=== PATIENT | female | born 1990 | race Caucasian/White ===

== ENCOUNTER 2017-04-05 20:50 | Emergency (ER) | payer BC, OTHER ==
[2017-04-05] MEDS ORDERED: NS 0.9% 1000 ML* 2,000 ML IV ONE (21:42)
[2017-04-05 21:48] LABS: Hematocrit 42 % (35-47); Mean Corpuscular HGB Conc 33 g/dl (31-36); Mean Corpuscular Hemoglobin 30 pg (27-31); Mean Corpuscular Volume 88 fL (80-97); Mean Platelet Volume 7 um3 (7.4-10.4); Red Blood Count 4.75 10^6/ul (4.0-5.4); Red Cell Distribution Width 13 % (10.5-15); White Blood Count 12.6 10^3/ul (3.5-10.8)
[2017-04-05 21:53] LABS: Urine Bacteria Absent (Absent); Urine Bilirubin Negative (Negative); Urine Glucose Negative (Negative); Urine Nitrite Negative (Negative)
[2017-04-05 21:59] LABS: ALT 8 U/L (7-52); AST 14 U/L (13-39); Albumin 4.5 g/dL (3.2-5.2); Alkaline Phosphatase 53 U/L (34-104); Anion Gap 8 mmol/L (2-11); BUN/Creatinine Ratio 12.8 (8-20); Blood Urea Nitrogen 10 mg/dL (6-24); CO2 Carbon Dioxide 22 mmol/L (22-32); Calcium 9.6 mg/dL (8.6-10.3); Chloride 103 mmol/L (101-111); Creatine Kinase 62 U/L (10-223); EGFR African American 113.9 (>60); EGFR Non-African American 88.6 (>60); Globulin 3.3 g/dL (2-4); Glucose 101 mg/dL (70-100); Potassium 3.5 mmol/L (3.5-5.0); Sodium 133 mmol/L (133-145); Total Protein 7.8 g/dL (6.4-8.9)
[2017-04-05 22:03] LABS: Benzodiazepine Urine Screen None Detected (None Detect)
[2017-04-05 22:13] LABS: Acetaminophen < 15 mcg/mL; Alcohol < 10 mg/dL (<10); Salicylate < 2.50 mg/dL (<30)
[2017-04-05 22:23] LABS: TSH (Thyroid Stimulating Horm) 2.11 mcIU/mL (0.34-5.60)
--- NOTE | 2017-04-06 06:42 | ED ---
Joseph Barnett Aidan, scribed for Savage Rios on 04/06/17 at 0634 . Progress - Progress Note Progress Note: Sign out to Dr. Mejia. This is a 27 y/o female who came with depression and drug OD. Poison control was called and they recommended observation for 6 hours. MHE was conducted. She will be re-evaluated. - Consult/PCP Time Called: 03:10 Course/Dx - Diagnoses Provider Diagnoses: Depression, Drug overdose The documentation as recorded by the Joseph kaur Aidan accurately reflects the service I personally performed and the decisions made by Gabriel shepherd Emmanuel.
--- NOTE | 2017-04-06 06:44 | ED ---
Mary Barnett Anna, scribed for Savage Rios on 04/05/17 at 2115 . Substance Abuse/Use - HPI Summary HPI Summary: Patient is a 27 y/o female coming to [facility] following the sudden onset of an intentional overdose of ibuprofen that occurred at 1930 this evening. The patient took two handfuls of 200 mg Advil to go to bed. She denies a prior history of depression, bipolar disorder, or suicidal attempt. She denies current pain or fever. - History Of Current Complaint Chief Complaint: EDMentalHealth Stated Complaint: OVERDOSE-IBUPROFEN Time Seen by Provider: 04/05/17 21:09 Hx Obtained From: Patient Onset/Duration of Drug/ETOH Abuse: Hours Ingestion History: Type/Name Of Drug - ibuprofen, Amount Ingested - two handfuls of 200 mg Advil tablets Overdose Characteristics: Oral Severity Initially: Moderate Severity Currently: Moderate Character: Other - Allergies/Home Medications Allergies/Adverse Reactions: Allergies Allergy/AdvReac Type Severity Reaction Status Date / Time Monosodium Glutamate Allergy Anaphylatic Verified 04/05/17 21:17 Shock PMH/Surg Hx/FS Hx/Imm Hx Endocrine/Hematology History: Denies: Hx Sickle Cell Disease Cardiovascular History: Denies: Hx Congenital Heart Disease Respiratory History: Reports: Hx Asthma Psychiatric History: Denies: Hx Depression, Hx Suicide Attempt Infectious Disease History: Denies: Traveled Outside the [place] in Last 30 Days - Family History Known Family History: Positive: Cardiac Disease, Hypertension, Diabetes, Other - Hx Colon CA - Social History Lives: With Family Alcohol Use: None Substance Use Type: Reports: None Hx Tobacco Use: No Review of Systems Constitutional: Other - overdose Negative: Fever Negative: Arthralgia, Myalgia Negative: Depressed All Other Systems Reviewed And Are Negative: Yes Physical Exam Triage Information Reviewed: Yes Vital Signs On Initial Exam: Initial Vitals Temp Pulse Resp BP Pulse Ox 99.2 F 95 18 144/81 98 04/05/17 20:54 04/05/17 20:54 04/05/17 20:54 04/05/17 20:54 04/05/17 20:54 Vital Signs Reviewed: Yes Appearance: Positive: Well-Appearing, No Pain Distress Skin: Positive: Warm, Skin Color Reflects Adequate Perfusion Head/Face: Positive: Normal Head/Face Inspection Eyes: Positive: EOMI, CARMELO ENT: Positive: Normal ENT inspection Neck: Positive: Supple, Nontender Respiratory/Lung Sounds: Positive: Clear to Auscultation, Breath Sounds Present Cardiovascular: Positive: RRR, Pulses are Symmetrical in both Upper and Lower Extremities Abdomen Description: Positive: Nontender, Soft Bowel Sounds: Positive: Present Musculoskeletal: Positive: Normal, Strength/ROM Intact Neurological: Positive: Normal, Sensory/Motor Intact, Alert, Oriented to Person Place, Time Psychiatric: Positive: Depressed - Pt tearful upon exam Diagnostics - Vital Signs Vital Signs Temp Pulse Resp BP Pulse Ox 04/05/17 20:54 99.2 F 95 18 144/81 98 - Laboratory Result Diagrams: 04/05/17 21:30 04/05/17 21:30 Lab Statement: Any lab studies that have been ordered have been reviewed, and results considered in the medical decision making process. - EKG 2122 Cardiac Rate: NL - 86 bpm EKG Rhythm: Sinus Rhythm ST Segment: Normal Ectopy: None EKG Interpretation: No acute changes Course/Dx - Course Course Of Treatment: mhe pending am - Diagnoses Provider Diagnoses: Depression, Drug overdose Discharge - Discharge Plan Condition: Stable Disposition: OTHER Discharge Disposition Comment: endosed to [facility] The documentation as recorded by the Mary kaur Anna accurately reflects the service I personally performed and the decisions made by Gabriel shepherd Emmanuel.
[2017-04-06 07:23] VITALS: BP 120/69
--- NOTE | 2017-04-06 16:05 | ED ---
Abraham Barnett Soohyun, scribed for Rajan Mejia MD on 04/06/17 at 1357 . Progress - Progress Note Progress Note: Pt was signed out from Dr. Rios at shift change. Pt is safe for discharge after mental health evaluation with diagnosis of depression. - Consult/PCP Time Called: 03:10 Course/Dx - Diagnoses Provider Diagnoses: Depression, Drug overdose The documentation as recorded by the sedaibAbraham marie Soohyun accurately reflects the service I personally performed and the decisions made by , Rajan Mejia MD.
== END 2017-04-06 14:05 ==
LOC: ED 20:50
DX: T39.312A Poisoning by propionic acid derivatives, intentional self-harm, initial encounter (principal); F32.9 Major depressive disorder, single episode, unspecified; Y92.9 Unspecified place or not applicable
CPT/HCPCS: 36415; 80053; 80307; 80320; 80329; 81003; 81015; 82550; 84443; 84702; 85025; 93005; 99282; G0480

== ENCOUNTER → 2017-09-04 09:53 | Emergency (ER) | payer BC ==
[~2017-09-04 09:53] MED LIST: Ibuprofen TAB* 600 MG PO ONE
[2017-09-04 10:00] VITALS: BP 119/79
--- NOTE | 2017-09-04 10:50 | RAD ---
HISTORY: Left ankle trauma COMPARISONS: None VIEWS: 4, Frontal, lateral, and oblique views of the left ankle FINDINGS: BONE DENSITY: Normal. BONES: There is no displaced fracture. JOINTS: There is no arthropathy. ALIGNMENT: There is no dislocation. SOFT TISSUES: Unremarkable. OTHER FINDINGS: None. IMPRESSION: NO ACUTE OSSEOUS INJURY. IF SYMPTOMS PERSIST, RECOMMEND REPEAT IMAGING.
--- NOTE | 2017-09-04 14:08 | ED ---
Jin Barnett Benjamin, scribed for Junito Mendoza MD on 09/04/17 at 1028 . Lower Extremity - HPI Summary HPI Summary: 27yo female who tripped and fell down the stairs this morning and hurt her left ankle. Area is swollen and hurts to move. No significant PMHx. - History of Current Complaint Chief Complaint: EDExtremityLower Stated Complaint: FALL/LT ANKLE PAIN Time Seen by Provider: 09/04/17 10:20 Hx Obtained From: Patient Mechanism Of Injury: Twisted Onset of Pain: Post Accident Onset/Duration: Still Present Severity Initially: Mild Severity Currently: Mild Pain Intensity: 4 Pain Scale Used: 0-10 Numeric Timing: Constant Location: Is Discrete @ - left ankle Character Of Pain: Throbbing Associated Signs And Symptoms: Positive: Swelling Aggravating Factor(s): Standing, Ambulation, Movement, Weight Bearing Alleviating Factor(s): Ice Able to Bear Weight: No - Allergies/Home Medications Allergies/Adverse Reactions: Allergies Allergy/AdvReac Type Severity Reaction Status Date / Time Monosodium Glutamate Allergy Anaphylatic Verified 04/05/17 21:17 Shock PMH/Surg Hx/FS Hx/Imm Hx Endocrine/Hematology History: Denies: Hx Sickle Cell Disease Cardiovascular History: Denies: Hx Congenital Heart Disease Respiratory History: Reports: Hx Asthma Psychiatric History: Denies: Hx Eating Disorder, Hx Depression, Hx Suicide Attempt - Immunization History Date of Tetanus Vaccine: unk Date of Influenza Vaccine: none Infectious Disease History: No Infectious Disease History: Denies: Traveled Outside the [place] in Last 30 Days - Family History Known Family History: Positive: Cardiac Disease, Hypertension, Diabetes, Other - Hx Colon CA - Social History Occupation: Works From/At Home Lives: With Family Alcohol Use: None Substance Use Type: Reports: None Hx Tobacco Use: No Smoking Status (MU): Light Every Day Tobacco Smoker Review of Systems Constitutional: Negative Eyes: Negative ENT: Negative Cardiovascular: Negative Respiratory: Negative Gastrointestinal: Negative Genitourinary: Negative Positive: Arthralgia - left ankle, Edema - left ankle Skin: Negative Neurological: Negative All Other Systems Reviewed And Are Negative: Yes Physical Exam Triage Information Reviewed: Yes Vital Signs On Initial Exam: Initial Vitals Temp Pulse Resp BP Pulse Ox 97.9 F 92 20 119/79 98 09/04/17 09:58 09/04/17 09:58 09/04/17 09:58 09/04/17 09:58 09/04/17 09:58 Vital Signs Reviewed: Yes Appearance: Positive: Well-Appearing, No Pain Distress, Well-Nourished Skin: Positive: Warm, Skin Color Reflects Adequate Perfusion, Dry Head/Face: Positive: Normal Head/Face Inspection Eyes: Positive: EOMI, CARMELO ENT: Positive: Normal ENT inspection, Hearing grossly normal Neck: Positive: Supple, Nontender Respiratory/Lung Sounds: Positive: Clear to Auscultation, Breath Sounds Present Cardiovascular: Positive: RRR, Pulses are Symmetrical in both Upper and Lower Extremities Abdomen Description: Positive: Nontender, Soft Bowel Sounds: Positive: Present Musculoskeletal: Positive: Limited @ - left ankle, due to pain, Pain @ - left ankle, Edema Left - Swelling in left lateral malleolus. No ligament laxity. Neurological: Positive: Sensory/Motor Intact, Alert, Oriented to Person Place, Time Psychiatric: Positive: Affect/Mood Appropriate Diagnostics - Vital Signs Vital Signs Temp Pulse Resp BP Pulse Ox 09/04/17 09:58 97.9 F 92 20 119/79 98 - Laboratory Lab Statement: Any lab studies that have been ordered have been reviewed, and results considered in the medical decision making process. - Radiology Left Ankle XR Xray Interpretation: No Acute Changes - NO ACUTE OSSEOUS INJURY. IF SYMPTOMS PERSIST, RECOMMEND REPEAT IMAGING. Radiology Interpretation Completed By: Radiologist - ED physician has reviewed this radiology report and agrees. Re-Evaluation - Re-Evaluation First Eval Re-Evaluation Time: 10:59 Comment: Reviewed pts imaging result with the pt. Lower Extremity Course/Dx - Course Course Of Treatment: Ms. Ibrahim twisted her left ankle (inversion of the foot) andcame in with obvious swelling. There was no ligamentous laxity and x-ray showed no fracture. She was given a gel cast and crutches and D/C'd for F/U. - Diagnoses Provider Diagnoses: Left ankle sprain Discharge - Discharge Plan Condition: Stable Disposition: HOME Patient Education Materials: Cast Care (ED), Crutch Instructions (ED), Ankle Sprain (ED) Referrals: Anjum Zendejas MD [Medical Doctor] - The documentation as recorded by the Jin kaur Benjamin accurately reflects the service I personally performed and the decisions made by me, Junito Mendoza MD.
== END | disposition home or self-care (01) ==
LOC: ED 09:53
DX: S93.402A Sprain of unspecified ligament of left ankle, initial encounter (principal); Z72.0 Tobacco use; W18.09XA Striking against other object with subsequent fall, initial encounter; Y92.9 Unspecified place or not applicable; W10.9XXA Fall (on) (from) unspecified stairs and steps, initial encounter
CPT/HCPCS: 99282; A9270-GY

== ENCOUNTER 2019-05-04 16:55 | Emergency (ER) | payer BC, OTHER ==
[2019-05-04 17:01] VITALS: BP 116/73
--- NOTE | 2019-05-04 17:39 | UC ---
Cardiac HPI - HPI Summary HPI Summary: 29-year-old woman comes in with a chief complaint of left-sided splinting chest pain. Patient reports she woke up at 5 AM this morning when she sat up she had sudden onset of left sided splinting chest pain. She did have some sweating. She's had some night sweats recently. No cough or chest congestion. No fevers measured. No upper respiratory tract infection symptoms. Patient's had tubal ligation and is not on any estrogens. She has no history of prior DVT or pulmonary embolus. No recent travels or surgery. No calf or leg pain or swelling. Pain is worse this morning was a 9 out of 10 at this time it's a 3 out of 10. Taking deep breath makes the pain worse. Patient has had GERD symptoms several times this week. Moving her arms and neck does not make the pain worse. She is unable to make the pain worse by pushing on her chest. No rash. - History of Current Complaint Chief Complaint: UCChestPain Stated Complaint: CHEST PAIN, LEFT HAND NUMBING Time Seen by Provider: 05/04/19 17:00 Hx Last Menstrual Period: 04/28/19 Pain Intensity: 8 - Allergy/Home Medications Allergies/Adverse Reactions: Allergies Allergy/AdvReac Type Severity Reaction Status Date / Time monosodium glutamate Allergy Anaphylatic Verified 05/04/19 17:02 Shock Home Medications: Home Medications Ibuprofen TAB* [Motrin TAB* 400 MG] 400 mg PO Q6H PRN 05/04/19 [History Confirmed 05/04/19] PMH/Surg Hx/FS Hx/Imm Hx Previously Healthy: Yes - Surgical History Surgical History: None - Family History Known Family History: Positive: Cardiac Disease, Hypertension, Diabetes, Other - Hx Colon CA - Social History Alcohol Use: None Substance Use Type: None Smoking Status (MU): Light Every Day Tobacco Smoker Type: [employer] Household Exposure Type: Cigarettes Review of Systems All Other Systems Reviewed And Are Negative: Yes Constitutional: Positive: Other - SEE HPI Skin: Positive: Negative Eyes: Positive: Negative ENT: Positive: Negative Respiratory: Positive: Negative Cardiovascular: Positive: Chest Pain Gastrointestinal: Positive: Negative Motor: Positive: Negative Neurovascular: Positive: Negative Musculoskeletal: Positive: Negative Neurological: Positive: Negative Psychological: Positive: Negative Is Patient Immunocompromised?: No Physical Exam Triage Information Reviewed: Yes Appearance: Well-Appearing, No Pain Distress, Well-Nourished Vital Signs: Initial Vital Signs Temp 99.3 F 05/04/19 16:58 Pulse 79 05/04/19 16:58 Resp 18 05/04/19 16:58 BP 116/73 05/04/19 16:58 Pulse Ox 100 05/04/19 16:58 Vital Signs Reviewed: Yes Eye Exam: Normal Eyes: Positive: Conjunctiva Clear Neck: Positive: Supple, Nontender Respiratory: Positive: Chest non-tender, Lungs clear, Normal breath sounds, No respiratory distress Cardiovascular: Positive: RRR Abdomen Description: Positive: Nontender, Soft Bowel Sounds: Positive: Present Musculoskeletal Exam: Normal Musculoskeletal: Positive: Strength Intact, ROM Intact, No Edema - NO CALF TENDERNESS Neurological: Positive: Alert Psychological: Positive: Age Appropriate Behavior Skin Exam: Normal Diagnostics - EKG Cardiac Rate: NL - AT 1703 Cardiac Rhythm: Sinus: Normal - 85 BPM Ectopy: None ST Segment: Normal - Assessment/Plan Course Of Treatment: Patient Name: DRE PERSON Medical Record#: [id number] Ordering Physician: Saeed Dodson MD Acct.#: [id number] : 1990 Age: 29 Sex: F Location: [facility] [place] Exam Date: 05/04/191732 ADM Status: PRE ER Order Information: CHEST PA LAT 2 VWS Accession Number: [id number] CPT: 84767 INDICATION: LEFT side splinting chest pain with deep inspiration. History of tobacco use. COMPARISON: February 01, 2016 TECHNIQUE: Dual energy PA and routine lateral views of the chest were obtained. REPORT: Clear lungs and pleural spaces. Negative for pneumothorax. The heart, pulmonary vasculature, and mediastinal contours are unremarkable. Unremarkable osseous structures and soft tissue contours. IMPRESSION: #. No evidence for acute intrathoracic disease. <Electronically signed by Jeffery Graves MD in OV> 05/04/19 2172 I discussed the x-rays with the patient. Also discussed the EKG. On the EKG a due to see any ischemic changes. Patient's chest wall is nontender to palpation. Pain was worse when she first woke up at has improved over the course of the day. She has been suffering from GERD. The potential cause is acid aspiration during the night. I recommended taking omeprazole 20 mg twice a day. Patient reports that she has omeprazole at home which she will take. Also recommended not sleeping flat been sleeping propped up. If significant ibuprofen she should take it with food. We discussed the other potential causes of splinting chest pain to include pulmonary embolus, pericarditis and other causes. Patient was low risk based on PERC score for pulmonary embolus. A discussed going to the emergency department when the patient first got here for evaluation to include time blood work. She declined going to the emergency department. Did let her know that if she did not improve her got worse she needed to go to the emergency department for further evaluation and treatment. - Clinical Impression Provider Diagnosis: Chest pain, GERD (gastroesophageal reflux disease) Discharge - Sign-Out/Discharge Documenting (check all that apply): Patient Departure All imaging exams completed and their final reports reviewed: Yes - Discharge Plan Condition: Stable Disposition: HOME Patient Education Materials: Chest Pain (ED), Gastroesophageal Reflux Disease ( ED) Referrals: Candie Carrillo MD [Medical Doctor] - Additional Instructions: FOLLOW UP WITH YOUR DOCTOR. TAKE OMEPRAZOLE 20MG TWICE A DAY. IF YOU TAKE IBUPROFEN, TAKE IT WITH FOOD. GO TO THE EMERGENCY DEPARTMENT IF YOUR CONDITION WORSENS; CHEST OR ABDOMINAL PAIN, SHORTNESS OF BREATH, YOU FEEL ILL OR ANY QUESTIONS OR CONCERNS. - Billing Disposition and Condition Condition: STABLE Disposition: Home
== END 2019-05-04 18:42 | disposition home or self-care (01) ==
LOC: UCCORT 16:55
DX: K21.9 Gastro-esophageal reflux disease without esophagitis (principal); R07.9 Chest pain, unspecified; F17.210 Nicotine dependence, cigarettes, uncomplicated; Z91.02 Food additives allergy status
CPT/HCPCS: 71046; 93005; 99211; G0463

== ENCOUNTER 2019-12-22 19:52 | Emergency (ER) | payer OTHER ==
[2019-12-22 20:21] VITALS: BP 120/78
[2019-12-22] MEDS ORDERED: Ondansetron ODT TAB* 4 MG PO ONE (20:23)
[2019-12-22] MEDS ORDERED: Albuterol 2.5 MG/3 ML NEB.SOL* (0.083%) INH ONE (20:30)
[2019-12-22 20:32] LABS: Influenza A Molecular POSITIVE (Negative)
--- NOTE | 2019-12-22 20:45 | UC ---
FLU HPI - HPI Summary HPI Summary: "I think I have the flu" w/ nausea x48 hours. - History of Current Complaint Chief Complaint: UCRespiratory Stated Complaint: FLU LIKE SYMPTOMS Time Seen by Provider: 12/22/19 20:19 Hx Obtained From: Patient Hx Last Menstrual Period: 04/28/19 ?: No Onset/Duration: Sudden Onset, Lasting Days Severity Currently: Severe Severity Initially: Severe Pain Intensity: 8 Associated Signs & Symptoms: Positive: Fever, Myalgia, Cough, Headache, Vomiting - Allergy/Home Medications Allergies/Adverse Reactions: Allergies Allergy/AdvReac Type Severity Reaction Status Date / Time monosodium glutamate Allergy Anaphylatic Verified 12/22/19 20:18 Shock Home Medications: Home Medications Citalopram TAB* [CeleXA TAB*] 10 mg PO DAILY 12/22/19 [History Confirmed ] PMH/Surg Hx/FS Hx/Imm Hx - Surgical History Surgical History: Yes Surgery Procedure, Year, and Place: ectopic . 3x c-sections - Family History Known Family History: Positive: Cardiac Disease, Hypertension, Diabetes, Other - Hx Colon CA - Social History Alcohol Use: None Substance Use Type: None Smoking Status (MU): Light Every Day Tobacco Smoker Type: eCigarettes Amount Used/How Often: 1/2 PPD Length of Time of Smoking/Using Tobacco: 2 years Household Exposure Type: Cigarettes Review of Systems All Other Systems Reviewed And Are Negative: Yes Constitutional: Positive: Fever, Fatigue ENT: Positive: Sore Throat, Nasal Discharge Respiratory: Positive: Shortness Of Breath, Cough Gastrointestinal: Positive: Vomiting, Nausea Musculoskeletal: Positive: Myalgia Neurological: Positive: Headache Is Patient Immunocompromised?: No Physical Exam Triage Information Reviewed: Yes Appearance: Well-Nourished, Ill-Appearing, Pain Distress Vital Signs: Initial Vital Signs Temp 98.1 F 12/22/19 20:18 Pulse 71 12/22/19 20:18 Resp 18 12/22/19 20:18 BP 120/78 12/22/19 20:18 Pulse Ox 99 12/22/19 20:18 Vital Signs Reviewed: Yes Eye Exam: Normal ENT: Positive: Pharyngeal erythema, Nasal congestion, Nasal drainage Dental Exam: Normal Neck exam: Normal Respiratory: Positive: No accessory muscle use, Respiratory distress - moderate , Accessory muscle use, Wheezing, Inspiration Cardiovascular: Positive: RRR, No Murmur, Pulses Normal Abdominal Exam: Normal Musculoskeletal Exam: Normal Neurological Exam: Normal Psychological Exam: Normal Skin Exam: Normal Flu Course/Dx - Course Course Of Treatment: hx obtained, exam performed ,meds reviewed, flu positive, given zofran for nausea, tamilfu and zofran and albuterol prescribed. given a neb treatment for her chest tightness. - Differential Dx/Diagnosis Differential Diagnosis/HQI/PQRI: Influenza Provider Diagnosis: Influenza A Discharge ED - Sign-Out/Discharge Documenting (check all that apply): Patient Departure All imaging exams completed and their final reports reviewed: No Studies - Discharge Plan Condition: Stable Disposition: HOME Prescriptions: Albuterol HFA INHALER* [Ventolin HFA Inhaler*] 2 puff INH Q4H PRN #1 mdi PRN Reason: Cough Ondansetron ODT TAB* [Zofran 4 MG Odt TAB*] 4 mg PO Q8H PRN #12 tab.odt PRN Reason: Nausea Oseltamivir CAP* [Tamiflu CAP*] 75 mg PO BID #9 cap Patient Education Materials: Influenza (DC) Forms: *Work Release Referrals: Ceci Ruiz MD [Primary Care Provider] - Additional Instructions: 1. get plenty of rest 2. Increase clear fluids 3. use the zofran every 8 hours for the next two days and then as needed for nausea, eat as tolerated 4. Albuterol every 4 hours for cough and shortness of breath 5. Take the tamilfu for a total of 10 doses, your first one was given here. 6. Follow up in ER if you develop worsening shortness of breath - Billing Disposition and Condition Condition: STABLE Disposition: Home - Attestation Statements Provider Attestation: This patient was not seen by me. I was available for consult. Chart reviewed. CHERRI
[2019-12-22] MEDS ORDERED: Oseltamivir CAP* 75 MG CAP PO ONE (20:52)
== END 2019-12-22 21:01 | disposition home or self-care (01) ==
LOC: UCCORT 19:52
DX: J10.1 Influenza due to other identified influenza virus with other respiratory manifestations (principal); F17.210 Nicotine dependence, cigarettes, uncomplicated; Z88.8 Allergy status to other drugs, medicaments and biological substances
CPT/HCPCS: 99213; A9270-GY; G0463